=== PATIENT | male | born 1940 | race Caucasian/White ===

== ENCOUNTER 2016-08-31 15:48 | Emergency (ER) | payer MEDICARE ==
[2016-08-31 16:08] LABS: HEMOGLOBIN 14.5 gm/dl (14.0-17.5); RED BLOOD COUNT 4.5 M/UL (4.20-5.50); WHITE BLOOD COUNT 6.4 K/UL (4.5-11.0)
== END 2016-08-31 21:07 | disposition home or self-care (01) ==
LOC: ER1 15:48
PROVIDERS: Emergency Medicine
DX: R53.1 Weakness (principal); R53.83 Other fatigue; R42 Dizziness and giddiness; I25.2 Old myocardial infarction; I10 Essential (primary) hypertension; E78.5 Hyperlipidemia, unspecified; Z95.810 Presence of automatic (implantable) cardiac defibrillator; Z87.891 Personal history of nicotine dependence; Z79.01 Long term (current) use of anticoagulants; Z79.02 Long term (current) use of antithrombotics/antiplatelets; Z79.82 Long term (current) use of aspirin; Z79.899 Other long term (current) drug therapy
CPT/HCPCS: 36415; 70450; 71010; 80053; 80162; 81001; 82550; 82553; 83874; 84443; 84484; 85025; 85610; 85730; 87086; 93005; 99285; J7040

== ENCOUNTER 2020-12-05 10:37 | Observation (INO) | payer MEDICARE ==
[~2020-12-05] VITALS: Ht 170.2 cm; Wt 80.3 kg
[2020-12-05 11:30] LABS: HEMOGLOBIN 11.5 gm/dl (14.0-17.5); RED BLOOD COUNT 3.54 M/UL (4.20-5.50); WHITE BLOOD COUNT 6.8 K/UL (4.5-11.0)
[2020-12-05 11:57] LABS: BUN/CREATININE RATIO 18 (0-10)
[2020-12-05] MEDS ORDERED: REMERON15 MG PO (12:58)
[2020-12-05] MEDS ORDERED: ALDACTONE25 MG PO (12:58)
[2020-12-05] MEDS ORDERED: ENTRESTO 24 MG1 EACH PO (12:58)
[2020-12-05] MEDS ORDERED: COREG6.25 MG PO (12:59)
[2020-12-05] MEDS ORDERED: PACERONE200 MG PO (12:59)
[2020-12-05] MEDS ORDERED: DIGOX125 MCG PO (12:59)
[2020-12-05] MEDS ORDERED: VASOTEC2.5 MG PO (13:00)
[2020-12-05] MEDS ORDERED: ARICEPT5 MG PO (13:00)
[2020-12-05] MEDS ORDERED: NEURONTIN100 MG PO (13:01)
[2020-12-05] MEDS ORDERED: ZOCOR40 MG PO (13:01)
[2020-12-05] MEDS ORDERED: WARFARIN SODIUM2 MG PO (15:36)
[2020-12-05] MEDS ORDERED: WARFARIN SODIUM1 MG PO (15:36)
[2020-12-05] MEDS ORDERED: ASPIRIN EC81 MG PO (15:41)
[2020-12-06 05:26] LABS: RED BLOOD COUNT 3.07 M/UL (4.20-5.50)
[2020-12-06 05:40] LABS: BUN/CREATININE RATIO 17 (0-10)
[2020-12-06] MEDS ORDERED: LASIX20 MG PO (16:37)
== END 2020-12-06 17:10 | disposition home or self-care (01) ==
LOC: ER1 10:37 → CDU 12:49
PROVIDERS: Emergency Medicine; Physician Assistant; ADMIT Internal Medicine
DX: R07.89 Other chest pain (principal); I11.0 Hypertensive heart disease with heart failure; I50.23 Acute on chronic systolic (congestive) heart failure; I25.5 Ischemic cardiomyopathy; I48.91 Unspecified atrial fibrillation; I25.2 Old myocardial infarction; J44.9 Chronic obstructive pulmonary disease, unspecified; N40.0 Benign prostatic hyperplasia without lower urinary tract symptoms; E78.5 Hyperlipidemia, unspecified; D69.6 Thrombocytopenia, unspecified; D53.9 Nutritional anemia, unspecified; J60 Coalworker's pneumoconiosis; Z20.822 Contact with and (suspected) exposure to COVID-19; Z95.810 Presence of automatic (implantable) cardiac defibrillator; Z79.01 Long term (current) use of anticoagulants; Z79.82 Long term (current) use of aspirin; Z79.899 Other long term (current) drug therapy; Z95.1 Presence of aortocoronary bypass graft; Z87.891 Personal history of nicotine dependence
CPT/HCPCS: 71045; 78452; 80048; 80053; 80162; 82550; 82553; 83874; 83880; 84484; 85025; 85610; 93005; 93017; 99285; A9502; G0378; J2785; Q9957; U0002